=== PATIENT | female | born 1975 | race Caucasian/White ===

== ENCOUNTER 2019-06-27 12:31 | Emergency (ER) | payer BC, SELFPAY ==
[2019-06-27 12:56] VITALS: BP 149/90; PULSE 85; RESP 20; TEMP 36.6; O2SAT 98
--- NOTE | 2019-06-27 13:14 | ED.GENADULT ---
HPI - General Adult General Chief complaint: Upper Respiratory Infection Stated complaint: COUGH/BODY ACHES/ABBASI Time Seen by Provider: 06/27/19 13:00 Source: patient and RN notes reviewed Mode of arrival: ambulatory Limitations: no limitations History of Present Illness HPI narrative: 44-year-old female presents with complaints of swollen lymph nodes, body aches, sinus congestion, and cough for 2 days. No treatment. Dry coughing increases with lying down. Rhinorrhea and nasal congestion. Exacerbating factors consist of smoke exposure. Denies fever or chills. No nausea, vomiting, and abdominal pain. Denies chest pain, dyspnea, coughing up blood, difficulty swallowing, jaw pain, dental pain, facial pain, foreign body sensation, and rash. Remains active. Silvia denies being , unknown LMP due to IUD being in place. Some parts of this dictation were generated by voice recognition software and may contain typographical and/or grammatical inaccuracies. Related Data Home Medications Medication Instructions Recorded Confirmed duloxetine 30 mg capsule,delayed 30 mg PO DAILY 04/13/19 06/27/19 release duloxetine 60 mg capsule,delayed 60 mg PO DAILY 04/13/19 06/27/19 release esomeprazole magnesium 40 mg 40 mg PO DAILY 04/13/19 06/27/19 capsule,delayed release levothyroxine 75 mcg tablet 75 mcg PO DAILY 04/13/19 06/27/19 Allergies Allergy/AdvReac Type Severity Reaction Status Date / Time amoxicillin Allergy Unknown Asthma Verified 04/14/19 16:01 Penicillins Allergy Unknown Unknown Verified 04/14/19 16:01 Review of Systems Review of Systems: Narrative: CONSTITUTIONAL: Denies fever, chills, sweats. EYES: Denies visual changes, redness, discharge. ENT: Complains of rhinorrhea, congestion. Denies sore throat. otalgia. CARDIOVASCULAR: Denies chest pain, palpitations, edema. RESPIRATORY: Denies dyspnea, wheezing. Complains of dry cough productive. GASTROINTESTINAL: Denies abdominal pain, nausea, vomiting, diarrhea. GENITOURINARY: Denies dysuria, hematuria, abnormal discharge SKIN: Denies rash or itching. Complains of swollen lymph nodes. MUSCULOSKELETAL: Denies acute back pain, joint pain. Complains of myalgia. NEUROLOGIC: Denies numbness or focal weakness. PSYCHIATRIC: Denies anxiety or depression. All systems reviewed & are unremarkable except as noted in HPI and below. [facility] Past Medical History Medical History (Updated 07/02/19 @ 02:52 by YING Carmen) Acute sphenoidal sinusitis Anxiety Fibromyalgia Gastro-esophageal reflux disease without esophagitis Hypertension Hypothyroidism, unspecified Major depressive disorder, recurrent, moderate Medical marijuana use Obesity, unspecified Overactive bladder Pap smear for cervical cancer screening Surgical History Surgical History (Updated 07/02/19 @ 02:54 by YING Carmen) H/O section X2 History of bladder surgery Mesh placement Family History Family History Grandparent Hypertension Carcinoma of colon Family history of malignant neoplasm of breast Family history of coronary artery disease Mother Family history of elevated blood lipids Social History Social History (Updated 07/02/19 @ 02:55 by YING Carmen) Smoking status: Never smoker Second hand tobacco smoke exposure: No Alcohol intake: never Substance use type: marijuana Living arrangements: with family Gender identity (if verbalized by the patient): Female Comments At time of signature, agree with nurse past medical, surgical, social, and family history. There is no relevant family history pertinent to the presenting complaint. Exam Narrative: Exam Narrative: GENERAL: This is a well-nourished, well-developed patient, in no apparent distress. Speaks in full sentences and ambulates with steady gait without dyspnea. HEAD: normocephalic, atraumatic. EYES: PER
== END 2019-06-27 13:25 | disposition home or self-care (01) ==
PROVIDERS: Emergency Provider Nurse Practitioner Family
DX: J06.9 Acute upper respiratory infection, unspecified (principal); I10 Essential (primary) hypertension
CPT/HCPCS: 87081; 87804; 87880; 99213; G0463

== ENCOUNTER 2019-11-16 15:00 | Outpatient (CLI) | payer BC, SELFPAY ==
[2019-11-16 18:54] LABS: SARS-CoV-2 RNA PCR Negative
== END 2019-11-16 15:01 ==
LOC: ANHCOVIDDT 12-17 12:22
PROVIDERS: PCP Family Medicine; Visit Provider Obstetrics & Gynecology
DX: Z01.818 Encounter for other preprocedural examination (principal); Z11.59 Encounter for screening for other viral diseases
CPT/HCPCS: 87635; C9803; U0003

== ENCOUNTER 2019-11-18 01:38 | Day surgery (SDC) | payer BC, SELFPAY ==
[2019-11-10 13:45] VITALS: BMI 42.0
[2019-11-18] VITALS (11 sets, daily range): BP systolic 94–133; BP diastolic 51–91; PULSE 66–81; RESP 10–20; TEMP 36.3–36.6; O2SAT 95–100
[2019-11-18] MEDS: LACTATED RINGERS 1,000 ML 30 ML IV CONT ×2 (10:35→14:09)
--- NOTE | 2019-11-18 10:46 | WPDANESEPPF ---
Anes - Initial Pre Proc Eval Procedure: Operation Date: 11/18/19 12:00 Proposed Procedures p Laparoscopic Bilateral Tubal Ligation With Fallopian Rings - Alfonso Riggs MD s Hysteroscopy, Dilation and Curettage, Shanique Endometrial Ablation, Removal Of Intrauterine Device - Alfonso Riggs MD Date/Time: 11/18/19 10:46 Surgeon: Alfonso Riggs MD Pre Op Diagnosis: Irregular Bleeding/ Desires Sterilizaiton Patient Data Age: 44 Gender: F Height: 5 ft 9 in Weight: 131.1 kg Allergies Allergy/AdvReac Type Severity Reaction Status Date / Time amoxicillin Allergy Unknown Asthma Verified 11/18/19 10:15 Penicillins Allergy Unknown Unknown- Verified 11/18/19 10:15 UNSURE IF TRUE REACTION Home Medications Medication Instructions Recorded Confirmed Type cetirizine [Zyrtec] 10 mg PO DAILY 60 Days #60 tablet 06/27/19 11/18/19 Rx levothyroxine 75 mcg tablet 75 mcg PO DAILY #30 tablet 08/24/19 11/18/19 Rx duloxetine 60 mg capsule,delayed 60 mg PO DAILY #30 cap 09/28/19 11/18/19 Rx release esomeprazole magnesium 40 mg 40 mg PO DAILY #30 cap 10/01/19 11/18/19 Rx capsule,delayed release duloxetine 30 mg PO DAILY 11/10/19 11/18/19 History Patient hx anesthesia problems: none Family hx anesthesia problems: none PMFSH Past Medical History Medical History Acute sphenoidal sinusitis Anxiety Fibromyalgia Gastro-esophageal reflux disease without esophagitis Hypertension Hypothyroidism, unspecified Major depressive disorder, recurrent, moderate Medical marijuana use Obesity, unspecified Overactive bladder Pap smear for cervical cancer screening Surgical History Surgical History H/O section X2 History of bladder surgery Mesh placement Family History Family History Grandparent Hypertension Carcinoma of colon Family history of malignant neoplasm of breast Family history of coronary artery disease Mother Family history of elevated blood lipids Social History Social History Smoking status: Never smoker Second hand tobacco smoke exposure: No Alcohol intake: never Substance use type: marijuana Gender identity (if verbalized by the patient): Female Anes - Eval Final PreProcedure Day of Procedure 11/18/19 10:46 Patient weight: morbidly obese Heart: regular rate and rhythm Lungs: clear to auscultation Airway: Mallampati scale class II Neurological: alert and oriented Last oral intake: >/= 8 hours ASA classification: III Emergent: no Anesthetic plan: proceed Anesthesia type and monitoring: general ETT and standard monitoring Informed Consent: The patient's anesthetic plan and its attendant risks and benefits were discussed with the patient/family/POA. Questions were solicited and answers provided to the satisfaction of the patient/family/POA.
--- NOTE | 2019-11-18 11:40 | SUR.PREOP ---
Discussed delay with patient, voices understanding. Patient is messaging her mother to let her know. Up to bathroom.
--- NOTE | 2019-11-18 12:12 | PM.IMHP ---
H&P: HPI History of Present Illness Chief complaint: Irregular Bleeding/ Desires Sterilizaiton Narrative: 44 y/o with irregular vaginal bleeding despite treatment with a progestin-containing IUD and intermittent estradiol. She desires surgical management of her problem. She does not want to have any more children. Review of Systems Review of Systems: All systems reviewed & are unremarkable except as noted in HPI and below PMFSH Past Medical History Medical History Acute sphenoidal sinusitis Anxiety Fibromyalgia Gastro-esophageal reflux disease without esophagitis Hypertension Hypothyroidism, unspecified Major depressive disorder, recurrent, moderate Medical marijuana use Obesity, unspecified Overactive bladder Pap smear for cervical cancer screening Surgical History Surgical History H/O section X2 History of bladder surgery Mesh placement Family History Family History Grandparent Hypertension Carcinoma of colon Family history of malignant neoplasm of breast Family history of coronary artery disease Mother Family history of elevated blood lipids Social History Social History (Updated 11/18/19 @ 12:14 by Alfonso Riggs MD) Smoking status: Never smoker Second hand tobacco smoke exposure: No Alcohol intake: never Substance use type: marijuana Other substance usage details: Daily marijuana user Gender identity (if verbalized by the patient): Female Meds Home Medications and Allergies Home Medications Medication Instructions Recorded Confirmed Type cetirizine [Zyrtec] 10 mg PO DAILY 60 Days #60 tablet 06/27/19 11/18/19 Rx levothyroxine 75 mcg tablet 75 mcg PO DAILY #30 tablet 08/24/19 11/18/19 Rx duloxetine 60 mg capsule,delayed 60 mg PO DAILY #30 cap 09/28/19 11/18/19 Rx release esomeprazole magnesium 40 mg 40 mg PO DAILY #30 cap 10/01/19 11/18/19 Rx capsule,delayed release duloxetine 30 mg PO DAILY 11/10/19 11/18/19 History Allergies Allergy/AdvReac Type Severity Reaction Status Date / Time amoxicillin Allergy Unknown Asthma Verified 11/18/19 10:15 Penicillins Allergy Unknown Unknown- Verified 11/18/19 10:15 UNSURE IF TRUE REACTION Vital Signs Vital Signs - 24 hr 11/18/19 10:49 Temperature 36.3 C L Pulse Rate 66 Respiratory Rate 16 Blood Pressure 133/91 H Pulse Oximetry 100 Exam Const: Orientation/consciousness: patient oriented x3 Other: Well-developed, well-nourished female in no acute distress. Neck: Thyroid: thyroid normal Lymphatic: no lymphadenopathy noted (in neck, axilla or inguinal nodes) Resp: Effort & Inspection: normal respiratory effort Auscultation: clear to auscultation bilaterally Cardio: Rate: regular rate Rhythm: regular rhythm Heart sounds: S1 normal heart sound present and S2 normal heart sound present GI: Other: ABD: Soft, nontender, nondistended. No guarding or rebound tenderness. No hepatosplenomegaly. : General: Yes no CVA tenderness Other: External genitalia: normal female hair distribution, without lesion. Urethral meatus: no lesion, non prolapsed. Bladder: no mass, nontender Vagina: well-estrogenized, without lesion or discharge. No cystocele or rectocele. Cervix: no lesion or discharge. IUD strings are noted. Uterus: small, anteverted, freely mobile, nontender Adnexa: no mass or tenderness. Anus/perineum: no lesions, nontender Back/Spine/Pelvis: Back: no CVA tenderness Skin: General skin exam: normal color and no rashes or lesions noted Neuro: General: patient oriented x3 Extrem: Other: Extremities: nontender with no edema Psych: Mental Status: mental status grossly normal Affect: normal affect Assessment and Plan Assessment and plan (1) Menometrorrhagia: Code(s): N92.1 - Excessive and frequent m
[2019-11-18] MEDS: SCOPOLAMINE 1.5 MG PATCH TRANSDERM (12:28)
--- NOTE | 2019-11-18 13:46 | SUR.OPER ---
EBL:10cc
--- NOTE | 2019-11-18 14:00 | PM.PROC ---
Procedure Note - Detailed Date of procedure: 11/18/19 Pre-op diagnosis: Irregular Bleeding/ Desires Sterilizaiton Menometrorrhagia Desired sterility Post-op diagnosis: same Procedure performed: Laparoscopic bilateral tubal ligation with Falope rings Hysteroscopy Removal of IUD Dilation and sharp curettage Endometrial ablation with Shanique Description of procedure: The patient was taken to the operating room where general endotracheal anesthesia was administered. She was prepared and draped in the usual sterile fashion in dorsal lithotomy position. The bladder was drained with a red rubber catheter. A sterile speculum was placed into the vagina. The anterior lip of the cervix was grasped with a single-tooth tenaculum. The acorn uterine manipulator was placed. The speculum was withdrawn. Gloves were changed and attention was turned the abdomen. An infraumbilical skin incision was made with a scalpel. The abdomen was tented and a 5mm bladeless trocar was advanced under direct laparoscopic visualization. Pneumoperitoneum was administered using carbon dioxide gas. A survey of the pelvis and abdomen revealed the findings noted above. A second skin incision was made in the midline above the symphysis pubis and an 8mm bladeless trocar was advanced under direct laparoscopic visualization. The fallopian tube on the left side was followed out to the fimbriated end for identification. It was then grasped in the midportion with the Falope ring applicator. The Falope ring was then applied. A good loop of tube was noted to be distal to the ring. Hemostasis was excellent. The device was reloaded and the contralateral tube was similarly identified and ligated. An excellent application was noted here as well. A total of 4mL of 1% lidocaine was infiltrated into the serosa of the proximal tubes for postoperative anesthesia. The ports were withdrawn. The gas was allowed to escape. The skin incisions were reapproximated using interrupted subcuticular sutures of 4 0 Vicryl. Dermaflex was applied externally. Attention was redirected to the vagina where the acorn manipulator was withdrawn and the speculum reintroduced. Ten mL of 1% lidocaine was administered in a paracervical block. The cervix was then gently dilated using Hegar dilators until an 8 mm dilator could be passed. Hysteroscopy was performed using sterile saline as a distention medium. Findings are as noted above. The IUD strings were grasped with a ring forceps and the IUD was easily removed, intact, and discarded. Sharp curettage was then performed, and endometrial curettings were collected on a Telfa pad and passed off to be sent to pathology. Finally, the the Shanique device was advanced and endometrial ablation commenced without difficulty. The device was withdrawn and a second look was taken using the hysteroscope. Excellent coverage of the endometrial cavity was noted. The tenaculum was removed. Hemostasis was excellent. Sponge, lap, needle and instrument counts were correct. The patient was awakened and taken to the recovery room in stable condition. I was present and scrubbed through the entire procedure. Implants: Falope rings Anesthesia: GETA and local (1% lidocaine) Surgeon: Alfonso Riggs MD Estimated blood loss (mL): 5 Drains: No Packing: No Pathology: yes (endometrial curettings) Complications: None Condition: stable Disposition: PACU Findings: On laparoscopy, the right upper quadrant anatomy was unremarkable. The vermiform appendix was unremarkable. Dense adhesions were noted between the uterine fundus and the anterior abdominal wall, consistent with prior deliveries. The bilateral tubes and ovaries, anterior and posterior cul-de-sac, bilateral round ligaments and uterosacral ligaments were all unremarkable. On hysteroscopy, the IUD was noted to be properly positioned. Both tubal ostia were seen. The endometrial cavity was otherwise unremarkable.
== END 2019-11-18 16:44 | disposition home or self-care (01) ==
PROVIDERS: PCP Family Medicine; Visit Provider Obstetrics & Gynecology
PROC: (CPT 58671; principal; 2019-11-18 12:00)
PROC: 0U5B8ZZ Destruction of Endometrium, Via Natural or Artificial Opening Endoscopic (ICD-10-PCS; CPT 58563; 2019-11-18 12:00)
DX: N92.1 Excessive and frequent menstruation with irregular cycle (principal); Z30.2 Encounter for sterilization; Z30.432 Encounter for removal of intrauterine contraceptive device; I10 Essential (primary) hypertension; E03.9 Hypothyroidism, unspecified; M79.7 Fibromyalgia; F41.9 Anxiety disorder, unspecified; F33.1 Major depressive disorder, recurrent, moderate; E66.01 Morbid (severe) obesity due to excess calories; Z68.41 Body mass index [BMI] 40.0-44.9, adult
CPT/HCPCS: 58563; 58671; 88305; A4264; A9270; J0131; J0360; J1100; J1170; J2250; J2405; J2704; J3010; J7030; J7120

== ENCOUNTER 2021-05-02 00:52 | Day surgery (SDC) | payer BC, SELFPAY ==
[2021-04-25 09:46] VITALS: BMI 41.9
--- NOTE | 2021-04-25 10:00 | PC.NURSE ---
Report to the Outpatient Waiting Room, entrance under the green pavilion located off [facility], at time 11:00 on date 05/02/21. OR Time: 1:00. - You and your visitor will be asked a series of questions to screen for COVID 19 for your protection. - A mask is required within the hospital. - Only one visitor is allowed at this time. Patient visitors will be guided where to wait when not with patient. Preoperative COVID Testing Requirements: No COVID Test needed if: (proof is required; if not received patient will have Rapid Test prior to entry) - Patient has received COVID Vaccine at least 14 days prior to procedure date or - Patient has positive COVID test result within last 90 days of surgery date. COVID Test needed if above criteria is not met If not COVID vaccinated a COVID test must be conducted within 72 hours of surgery and patient is asked to isolate self from time of testing until procedure. You will go to the [facility] for your COVID testing. The [facility] is located at the corner of [address] [facility]. You will only be called if COVID results are positive and your surgeon may reschedule your elective surgery date. Patients may have clear liquids (water, carbonated beverages, clear teas, apple juice) until 3 hours prior to surgery with a maximum of 20 ounces. - No food from midnight until time of surgery - Infants may have breast milk until 4 hours before surgery, infant formula 6 hours prior to surgery. - Children will be allowed to drink immediately following surgery. If applicable, please bring a bottle or sippy cup to assist with drinking. Juice, water, soda, and popsicles are readily available. For infants on formula, please bring formula the day of surgery. Pacifiers are allowed. Take the following medications with a SIP of water the morning of surgery: DULOXETINE, LEVOTHYROXINE Medications to discontinue per physician: N/A Date to take last dose: N/A Please no make-up, nail romansh, hairspray, perfume, deodorant, or body powder the day of surgery. No jewelry (including any body piercings) or valuables the day of surgery, leave them at home. Please take a shower or bath the night before, or the morning of, surgery with an antibacterial soap. Wear comfortable, loose fitting clothing. Children are encouraged to wear pajamas. - Jewelry must be removed prior to entering the operating room. Rings and piercings that are not removed may be cut off. - The hospital will not accept responsibility for valuables. - Please leave all valuables, including medications, at home the day of surgery. If you are going home after surgery, a licensed hazardous materials tanker driver must drive you home. - NO public transportation without another adult. - We recommend that an adult stay with you for 24 hours following discharge. - We also recommend that you do not drive, make important decision, drink alcoholic beverages, or take any drugs that were not prescribed by your health care provider for at least 24 hours after your discharge time. For Pediatric surgeries, we recommend two adults accompany the child home (only one inside the building at this time). Follow any additional instructions given to you from your surgeon. Telephone instructions given to BARTOLO CALIX and asked if any additional questions and then verbalized understanding. Patient advised to call surgeon office or pre surgery nurse liaison [phone] if any additional questions.
[2021-05-02] VITALS (10 sets, daily range): BP systolic 111–161; BP diastolic 73–108; PULSE 78–92; RESP 15–21; TEMP 36.1–37.1; O2SAT 93–100
[2021-05-02] MEDS: LACTATED RINGERS 1,000 ML 30 ML IV CONT (12:00)
[2021-05-02] MEDS: KETOROLAC 15 MG/ML VIAL (*BKC) IV PUSH (12:05)
--- NOTE | 2021-05-02 12:17 | WPDANESEPPF ---
Anes - Initial Pre Proc Eval Procedure: Operation Date: 05/02/21 13:00 Proposed Procedures p Robotic Assisted Total Vaginal Hysterectomy, with Bilateral Salpingectomy - Alfonso Riggs MD Date/Time: 05/02/21 12:17 Surgeon: Alfonso Riggs MD Pre Op Diagnosis: irregular bleeding, dysmenorrhea, failed ablation Patient Data Age: 45 Gender: F Height: 1.74 m Weight: 127 kg Allergies Allergy/AdvReac Type Severity Reaction Status Date / Time amoxicillin Allergy Unknown Rash Verified 05/02/21 12:11 Penicillins Allergy Unknown Rash Verified 05/02/21 12:11 acetaminophen [From [facility]] AdvReac Severe Vomiting Verified 05/02/21 12:11 hydrocodone [From [facility]] AdvReac Severe Vomiting Verified 05/02/21 12:11 Home Medications Medication Instructions Recorded Confirmed Type cetirizine [Zyrtec] 10 mg PO DAILY 60 Days #60 tablet 06/27/19 05/02/21 Rx duloxetine 60 mg capsule,delayed 60 mg PO DAILY #30 cap 09/28/19 05/02/21 Rx release levothyroxine 112 mcg PO DAILY 04/25/21 05/02/21 History pantoprazole 40 mg PO DAILY 04/25/21 05/02/21 History Patient hx anesthesia problems: none Family hx anesthesia problems: none Results Review: All pre-operative results and documents have been reviewed as part of the pre-operative evaluation. [facility] Past Medical History Medical History Acute sphenoidal sinusitis Anxiety Fibromyalgia Gastro-esophageal reflux disease without esophagitis Hypertension Hypothyroidism, unspecified Major depressive disorder, recurrent, moderate Medical marijuana use Obesity, unspecified Overactive bladder Pap smear for cervical cancer screening Surgical History Surgical History H/O section X2 History of bladder surgery Mesh placement Family History Family History Grandparent Hypertension Carcinoma of colon Family history of malignant neoplasm of breast Family history of coronary artery disease Mother Family history of elevated blood lipids Social History Social History Smoking packs per day: 1 Smoking cigarettes per day: 20.0 Years smoked: 10 Smoking pack-years: 10.00 Smoking status: Former smoker Tobacco type: cigarettes Second hand tobacco smoke exposure: No Alcohol intake: never Substance use: current Substance use type: marijuana Other substance usage details: Daily marijuana user Last use: 04/25/21 Living arrangements: with family Gender identity (if verbalized by the patient): Female Spiritual care concerns: No Anes - Eval Final PreProcedure Day of Procedure 05/02/21 12:17 Patient weight: morbidly obese Heart: regular rate and rhythm Lungs: decreased breath sounds Airway: Mallampati scale class II Neurological: alert and oriented Last oral intake: >/= 8 hours ASA classification: III Emergent: no Anesthetic plan: proceed Anesthesia type and monitoring: general ETT and standard monitoring Results Review: All pre-operative results and documents have been reviewed as part of the pre-operative evaluation. Informed Consent: The patient's anesthetic plan and its attendant risks and benefits were discussed with the patient/family/POA. Questions were solicited and answers provided to the satisfaction of the patient/family/POA.
[2021-05-02] MEDS: SCOPOLAMINE 1.5 MG PATCH TRANSDERM (12:21)
--- NOTE | 2021-05-02 12:32 | PM.IMHP ---
H&P: HPI History of Present Illness Date/Time: 05/02/21 12:32 45 y/o who had an endometrial ablation. She initially had been happy with her results, but recently has developed some vaginal bleeding and some severe cramping. She had an ED visit and a CT was negative. Subsequently she has had heavy vaginal bleeding episodes. She is requesting definitive management with hysterectomy. Chief Complaint: Pain and bleeding Review of Systems Review of Systems: All systems reviewed & are unremarkable except as noted in HPI and below PMFSH Past Medical History Medical History (Updated 05/02/21 @ 12:35 by Alfonso Riggs MD) Acute sphenoidal sinusitis Anxiety Fibromyalgia Gastro-esophageal reflux disease without esophagitis Hypertension Hypothyroidism, unspecified Major depressive disorder, recurrent, moderate Medical marijuana use Menometrorrhagia Obesity, unspecified Overactive bladder Pap smear for cervical cancer screening Surgical History Surgical History H/O section X2 History of bladder surgery Mesh placement Family History Family History Grandparent Hypertension Carcinoma of colon Family history of malignant neoplasm of breast Family history of coronary artery disease Mother Family history of elevated blood lipids Social History Social History Smoking packs per day: 1 Smoking cigarettes per day: 20.0 Years smoked: 10 Smoking pack-years: 10.00 Smoking status: Former smoker Tobacco type: cigarettes Second hand tobacco smoke exposure: No Alcohol intake: never Substance use: current Substance use type: marijuana Other substance usage details: Daily marijuana user Last use: 04/25/21 Living arrangements: with family Gender identity (if verbalized by the patient): Female Spiritual care concerns: No Meds Home Medications and Allergies Home Medications Medication Instructions Recorded Confirmed Type cetirizine [Zyrtec] 10 mg PO DAILY 60 Days #60 tablet 06/27/19 05/02/21 Rx duloxetine 60 mg capsule,delayed 60 mg PO DAILY #30 cap 09/28/19 05/02/21 Rx release levothyroxine 112 mcg PO DAILY 04/25/21 05/02/21 History pantoprazole 40 mg PO DAILY 04/25/21 05/02/21 History Allergies Allergy/AdvReac Type Severity Reaction Status Date / Time amoxicillin Allergy Unknown Rash Verified 05/02/21 12:11 Penicillins Allergy Unknown Rash Verified 05/02/21 12:11 acetaminophen [From [place]] AdvReac Severe Vomiting Verified 05/02/21 12:11 hydrocodone [From [place]] AdvReac Severe Vomiting Verified 05/02/21 12:11 Vital Signs Vital Signs - 24 hr 05/02/21 12:12 Temperature 36.8 C Pulse Rate 78 Blood Pressure 140/83 Pulse Oximetry 96 Exam Const: Orientation/consciousness: patient oriented x3 Other: Well-developed, well-nourished female in no acute distress. Neck: Thyroid: thyroid normal Lymphatic: no lymphadenopathy noted (in neck, axilla or inguinal nodes) Resp: Effort & Inspection: normal respiratory effort Auscultation: clear to auscultation bilaterally Cardio: Rate: regular rate Rhythm: regular rhythm Heart sounds: S1 normal heart sound present and S2 normal heart sound present GI: Other: ABD: Soft, nontender, nondistended. No guarding or rebound tenderness. No hepatosplenomegaly. : General: Yes no CVA tenderness Other: External genitalia: normal female hair distribution, without lesion. Urethral meatus: no lesion, non prolapsed. Bladder: no mass, nontender Vagina: well-estrogenized, without lesion or discharge. No cystocele or rectocele. Cervix: no lesion or discharge. Uterus: small, anteverted, freely mobile, nontender Adnexa: no mass or tenderness. Anus/perineum: no lesions, nontender Back/Spine/Pelvis: Back: no CVA tenderness Skin: General skin exam: normal color a
[2021-05-02] MEDS: ceFAZolin 3 GM/D5W 100 ML 100 ML IVPB (12:33)
--- NOTE | 2021-05-02 12:36 | WPDHPUPDATE1 ---
History and Physical Update Update Date/Time: 05/02/21 12:36 History and Physical has been reviewed, including an updated exam of the patient. There are NO changes in the patient's condition. Risks, benefits, and alternatives have been discussed and questions answered. Patient agrees to proceed with procedure.
--- NOTE | 2021-05-02 14:34 | P.OP_ITS ---
Procedure Note - Detailed Date of Procedure 05/02/21 Pre-op Diagnosis irregular bleeding, dysmenorrhea, pelvic pain Post-op Diagnosis same Procedure Performed Robotic assisted total vaginal hysterectomy with bilateral salpingectomies Surgeon Alfonso Riggs MD Anesthesia general Findings Enlarged uterus. Bilateral Fallopian tubes with evidence of prior tubal ligation. Bilateral ovaries unremarkable. Posterior cul-de-sac unremarkable. Anterior cul-de-sac with dense adhesions. RUQ anatomy normal-appearing. Vermiform appendix not seen. Description of Procedure The patient was taken to the operating room where general endotracheal anesthesia was administered. She was prepared and draped in the usual sterile fashion in the dorsal lithotomy position. The bladder was drained with Jones catheter. The cervix was visualized and the anterior lip was grasped using a single-tooth tenaculum. The cervix was gently dilated using Hegar dilators. The NEIL 2 uterine manipulator was then placed and the tenaculum was removed. Gloves were changed and attention was turned to the abdomen. A supraumbilical skin incision was made with the scalpel. The Veress needle was advanced and pneumoperitoneum was administered using carbon dioxide gas. The bladeless trocar was then advanced. Intraperitoneal placement was confirmed using the laparoscope. Lateral ports and an legal document assistant port were all placed using bladeless trocars under direct laparoscopic visualization. She was placed in Trendelenburg position and the patient cart was docked. I assumed the console. The ureters were visualized bilaterally. The round ligament on the right was divided. The Fallopian tube was dissected free from the ovary and mesentery. The uteroovarian ligament was divided. The broad ligament was divided, skeletonizing the uterine artery on the right. The left side was similarly dissected. Dense adhesions between the anterior uterus and abdominal wall were meticulously dissected. Finally, the bladder was able to be fully reflected away. Colpotomy was performed circumferentially. The specimen was removed and passed off to be sent to pathology. The vaginal cuff was reapproximated using 0 Vicryl in interrupted [id number] fashion. The pelvis was irrigated copiously using warmed normal saline. Rigorous hemostasis was assured. HemaDerm was applied to the vaginal cuff. The pedicles were inspected once again. The ports were then withdrawn and the gas was allowed to escape. The skin incisions were reapproximated using 4 0 Monocryl in interrupted subcuticular fashion. Dermaflex was applied externally. Sponge, lap, needle and instrument counts were correct. The patient was awakened and taken to the recovery room in stable condition. I was present and scrubbed through the entire procedure. Implants None Estimated Blood Loss 50 Drains Yes (jones) Packing No Pathology yes (uterus, cervix bilateral Fallopian tubes) Complications None Condition stable Disposition PACU
[2021-05-02] MEDS: ALBUTEROL SULFATE NEB 2.5 MG/3 ML INH INHALATION (15:05)
[2021-05-02] MEDS: fentaNYL CITRATE INJ (*CRX) 100 MCG/2 ML VIAL 25 MCG IV PUSH ×4 (15:08→15:25)
--- NOTE | 2021-05-02 16:05 | PC.NURSE ---
This patient, Silvia Arthur, was received from PACU on 05/02/21 at 1605. Patient/family oriented to unit policies and routines
[2021-05-02] MEDS: DEXTROSE 5%/0.45% SOD CHL 1,000 ML 125 ML IV CONT ×2 (16:28→23:57)
[2021-05-02] MEDS: MORPHINE SULFATE (*CRX) 4 MG/ML INJ IV PUSH ×2 (16:29→22:48)
[2021-05-02] MEDS: ENOXAPARIN 40 MG/0.4 ML SYRINGE SUB-Q (20:19)
[2021-05-02] MEDS: KETOROLAC 30 MG/ML VIAL (*BKC) IV PUSH (20:19)
[2021-05-02] MEDS: SIMETHICONE 80 MG TAB.CHEW PO (23:51)
[2021-05-03] MEDS: IBUPROFEN 600 MG TABLET PO (03:06)
[2021-05-03 03:10] VITALS: BP 111/77; PULSE 70; RESP 16; TEMP 36.8; O2SAT 95
[2021-05-03 05:18] LABS: Basophils Percent Auto 0.2 % (0.2-1.2); Eosinophils Percent Auto 0.1 % (0-4.4); Hematocrit 38.2 % (37.0-47.0); Hemoglobin 12.7 g/dL (12.0-15.0); Immature Granulocyte Absolute 0.07 K/mm3 (0.00-0.031); Immature Granulocyte Percent A 0.6 % (0-0.5); Lymphocytes Absolute Auto 1.41 K/mm3 (0.9-3.2); Lymphocytes Percent Auto 11.5 % (18.3-44.2); Mean Corpuscular HGB Conc 33.2 g/dl (32-36); Mean Corpuscular Hemoglobin 29.3 pg (26-34); Mean Platelet Volume 11.2 fl (7.4-10.4); Monocytes Absolute Auto 1.1 K/mm3 (0.1-0.6); Monocytes Percent Auto 8.6 % (2.6-8.5); Neutrophils Absolute Auto 9.7 K/mm3 (1.3-6.7); Platelet Count Result 202 k/mm3 (150-375); Red Blood Count 4.34 M/mm3 (4.2-5.4); White Blood Count 12.3 K/mm3 (4.5-10.0)
[2021-05-03] MEDS: LEVOTHYROXINE SODIUM 112 MCG TABLET PO (07:38)
[2021-05-03] MEDS: SIMETHICONE 80 MG TAB.CHEW PO (07:53)
[2021-05-03 08:15] VITALS: BP 128/85; PULSE 67; RESP 16; TEMP 37.2; O2SAT 97
--- NOTE | 2021-05-03 08:58 | PM.GYNPNOP ---
[employer] - A/P Postoperative Procedures: Procedures Operation Date: 05/02/21 13:00 Actual Procedure Side Surgeon p Robotic Assisted Total Vaginal Hysterectomy, with Bilateral Salpingectomy Alfonso Riggs MD A: POD#1, doing well. P: Home to f/u 2 weeks. Time Spent With Patient Time with patient: less than 15 minutes [employer]- PN:Subj Post-Op Subjective Date/time seen: 05/03/21 08:58 Interval history: Pain OK. Tolerating diet. Voiding. Would like to go home. Exam Narrative: AVSS I/O OK ABD soft, nontender. Incisions c/d/i. EXT nontender [employer] - PN: Obj Data Vital Signs Vital Signs: Vital Signs - 24 hr 05/02/21 12:12 05/02/21 14:47 05/02/21 15:00 Temperature 36.8 C 36.4 C Pulse Rate 78 90 83 Respiratory Rate 21 H 21 H Blood Pressure 140/83 161/108 H 126/94 H Pulse Oximetry 96 100 100 05/02/21 15:05 05/02/21 15:15 05/02/21 15:30 Temperature Pulse Rate 92 90 85 Respiratory Rate 20 16 15 Blood Pressure 123/94 H 124/79 Pulse Oximetry 95 95 05/02/21 15:45 05/02/21 16:15 05/02/21 20:15 Temperature 36.2 C L 36.1 C L 37.1 C Pulse Rate 92 87 79 Respiratory Rate 17 18 16 Blood Pressure 114/79 131/73 111/75 Pulse Oximetry 93 97 97 05/02/21 23:55 05/03/21 03:10 Temperature 36.7 C 36.8 C Pulse Rate 79 70 Respiratory Rate 16 16 Blood Pressure 125/82 111/77 Pulse Oximetry 94 95 Intake/Output Intake/Output: Intake & Output 04/30/21 05/01/21 05/02/21 05/03/21 23:59 23:59 23:59 23:59 Intake Total 1440 1400 Output Total 1100 1250 Balance 340 150 Meds/Results Medications: Active Medications Generic Name Dose Route Start Last Admin Trade Name Freq PRN Reason Stop Dose Admin Docusate Sodium 100 mg 05/02/21 17:00 05/02/21 18:39 Docusate Sodium 100 Mg Capsule PO Not Given BID [facility] Duloxetine HCl 60 mg 05/03/21 09:00 Duloxetine Hcl 60 Mg Capsule.Dr PO DAILY CHERYL Enoxaparin Sodium 40 mg 05/02/21 21:00 05/02/21 20:19 Enoxaparin 40 Mg/0.4 Ml Syringe SUB-Q 40 mg DAILY CHERYL Administration Dextrose/Sodium Chloride 1,000 mls @ 125 mls/hr 05/02/21 15:59 05/03/21 04:57 Dextrose 5% Sodium Chloride 0.45% IV CONT Infused .Q8H CHERYL Infusion Ibuprofen 600 mg 05/02/21 15:59 05/03/21 03:06 Ibuprofen 600 Mg Tablet PO 600 mg Q6H PRN Administration Cramping Ketorolac Tromethamine 30 mg 05/02/21 15:59 05/02/21 20:19 Ketorolac 30 Mg/Ml Vial (*Bkc) IV PUSH 05/07/21 15:58 30 mg Q6H PRN Administration Pain Rated 4-6 Levothyroxine Sodium 112 mcg 05/03/21 06:30 05/03/21 07:38 Levothyroxine Sodium 112 Mcg Tablet PO 112 mcg DAILY@0630 CHERYL Administration Loratadine 10 mg 05/03/21 09:00 Loratadine 10 Mg Tablet PO 06/02/21 08:59 DAILY [facility] Morphine Sulfate 4 mg 05/02/21 15:59 05/02/21 22:48 Morphine Sulfate (*Crx) 4 Mg/Ml Inj IV PUSH 4 mg Q4H PRN Administration Pain Rated 7-10 Naloxone HCl 0.1 mg 05/02/21 15:59 Naloxone Hcl 0.4 Mg/Ml Vial IV PUSH Q2M PRN Respiratory rate less than 10 Ondansetron HCl 4 mg 05/02/21 15:59 Ondansetron Inj 4 Mg/2 Ml Vial IV PUSH Q6H PRN Nausea Oxycodone/Acetaminophen 1 tablet 05/02/21 15:59 Oxycodone/Acetaminophen (*Crx) 5-325 Mg Tablet PO Q4H PRN Pain Rated 6 or Greater Pantoprazole Sodium 40 mg 05/03/21 09:00 Pantoprazole 40 Mg Tablet PO DAILY CHERYL Simethicone 80 mg 05/02/21 15:59 05/03/21 07:53 Simethicone 80 Mg Tab.Chew PO 80 mg Q2H PRN Administration Gas Labs CBC & Chem 7: 05/03/21 04:43 Labs: Laboratory Results - last 24 hr 05/02/21 05/03/21 11:52 04:43 WBC 12.3 H RBC 4.34 Hgb 12.7 Hct 38.2 MCV 88.0 MCH 29.3 MCHC 33.2 RDW 13.0 Plt Count 202 MPV 11.2 H Immature Gran % (Auto) 0.6 H Neut % (Auto) 79.0 H Lymph % (Auto) 11.5 L [place] % (Auto) 8.6 H Eos % (Auto) 0.1 Baso % (Auto) 0.2 Lymph # (Auto) 1.41 [place]
--- NOTE | 2021-05-03 08:59 | PM.DS ---
DS: Admitting Diagnosis Discharge Date 05/03/21 Admitting Diagnosis Menometrorrhagia Dysmenorrhea Pelvic pain DS: Discharge Diagnosis Discharge Diagnosis (1) Pelvic pain: Code(s): R10.2 - Pelvic and perineal pain Status: Acute (2) Menometrorrhagia: Code(s): N92.1 - Excessive and frequent menstruation with irregular cycle Status: Chronic (3) Dysmenorrhea: Code(s): N94.6 - Dysmenorrhea, unspecified Status: Acute DS: Summary Hospital Course Hospital Course: Admitted to the hospital on the date of scheduled surgery. Please see op note. Did well postop and was asking to go home on POD#1. DS: Data Data Completed and Pending Pending studies at discharge: Pending at discharge 05/02/21 14:14 Surgical [PTH] Routine Labs on day of discharge: Labs from last 24 hours 05/03/21 05/02/21 04:43 11:52 WBC 12.3 H RBC 4.34 Hgb 12.7 Hct 38.2 MCV 88.0 MCH 29.3 MCHC 33.2 RDW 13.0 Plt Count 202 MPV 11.2 H Immature Gran % (Auto) 0.6 H Neut % (Auto) 79.0 H Lymph % (Auto) 11.5 L [place] % (Auto) 8.6 H Eos % (Auto) 0.1 Baso % (Auto) 0.2 Lymph # (Auto) 1.41 [place] # (Auto) 1.1 H Eos # (Auto) 0.0 Baso # (Auto) 0.0 Abs Immat Gran (auto) 0.07 H Absolute Neuts (auto) 9.7 H Absolute Nucleated RBC 0.0 Nucleated RBC % 0.0 Blood Type O Positive Antibody Screen Negative Discharge Plan Discharge Patient Disposition: Home, Self-Care Discharge Instructions: Remove the Scopolamine patch that was placed behind your left ear in 72 hours or less. Wash your hands after touching. Call or return if temperature above 100.4? F, increased abdominal pain, increased vaginal bleeding or any new problems. Stand Alone Forms: General Discharge Instructions Follow-up/Referrals: Alfonso Riggs MD [Physician] - 2 Weeks Discharge Medications: New oxycodone-acetaminophen [Percocet] 5-325 mg tablet 1 tablet PO Q6H PRN (Reason: pain) Qty: 20 RF: 0 Continued cetirizine [Zyrtec] 10 mg tablet 10 mg PO DAILY 60 Days Qty: 60 RF: 0 pantoprazole 40 mg tablet,delayed release (DR/EC) 40 mg PO DAILY RF: 0 levothyroxine 112 mcg tablet 112 mcg PO DAILY RF: 0 duloxetine 60 mg capsule,delayed release(DR/EC) 60 mg PO DAILY Qty: 30 RF: 5
--- NOTE | 2021-05-03 10:21 | WPDANESPN ---
Anes - Prog Note Post-Op Date/Time: 05/03/21 10:21 Cardiovascular status: normal Respiratory status: normal Airway patency: baseline Mental status: baseline Post-Op hydration status: normal Vital Signs: Last Vital Signs Temp 37.2 C 05/03/21 08:15 Pulse 67 05/03/21 08:15 Resp 16 05/03/21 08:15 BP 128/85 05/03/21 08:15 Pulse Ox 97 05/03/21 08:15 Pain Score (VAS): 0 I/O: Intake & Output 05/02/21 05/03/21 05/03/21 23:59 07:59 15:59 Intake Total 1240 1400 Output Total 1100 1250 Balance 140 150 Laboratory Tests 05/03/21 04:43 05/02/21 05/03/21 11:52 04:43 WBC 12.3 H RBC 4.34 Hgb 12.7 Hct 38.2 MCV 88.0 MCH 29.3 MCHC 33.2 RDW 13.0 Plt Count 202 MPV 11.2 H Immature Gran % (Auto) 0.6 H Neut % (Auto) 79.0 H Lymph % (Auto) 11.5 L [place] % (Auto) 8.6 H Eos % (Auto) 0.1 Baso % (Auto) 0.2 Lymph # (Auto) 1.41 [place] # (Auto) 1.1 H Eos # (Auto) 0.0 Baso # (Auto) 0.0 Abs Immat Gran (auto) 0.07 H Absolute Neuts (auto) 9.7 H Absolute Nucleated RBC 0.0 Nucleated RBC % 0.0 Blood Type O Positive Antibody Screen Negative Post-procedural complaints: none Patient Feedback: Patient satisfied with anesthetic care.
== END 2021-05-03 10:31 | disposition home or self-care (01) ==
LOC: ANHSURGERY 12:20 → ANHOB2 16:04
PROVIDERS: PCP Family Medicine; Visit Provider Obstetrics & Gynecology
PROC: (CPT 58552; principal; 2021-05-02 13:00)
DX: N94.6 Dysmenorrhea, unspecified (principal); R10.2 Pelvic and perineal pain; N92.1 Excessive and frequent menstruation with irregular cycle; N73.6 Female pelvic peritoneal adhesions (postinfective); I10 Essential (primary) hypertension; E03.9 Hypothyroidism, unspecified; K21.9 Gastro-esophageal reflux disease without esophagitis; M79.7 Fibromyalgia; N32.81 Overactive bladder; F33.1 Major depressive disorder, recurrent, moderate; F41.9 Anxiety disorder, unspecified; E66.01 Morbid (severe) obesity due to excess calories; Z68.41 Body mass index [BMI] 40.0-44.9, adult; F12.90 Cannabis use, unspecified, uncomplicated; Z87.891 Personal history of nicotine dependence
CPT/HCPCS: 58552; S2900; 36415; 85025; 86850; 86900; 86901; 88307; 94640; 99199; A9270; J0690; J1100; J1650; J1885; J2250; J2270; J2405; J2704; J3010; J7030; J7120